=== PATIENT | female | born 1940 | race Caucasian/White ===

== ENCOUNTER → 2016-05-03 | Outpatient (CLI) | payer MEDICARE ==
[~2016-05-03] MED LIST: DAYPRO600 M1 PO; MEDROL DOSEPAK4 MG PO; SKELAXIN800 MG PO; VICODIN 500 MG-1 TAB PO; ZOFRAN4 MG PO
== END | disposition home or self-care (01) ==
LOC: MAMMO 12:38
DX: Z12.31 Encounter for screening mammogram for malignant neoplasm of breast (principal)

== ENCOUNTER 2018-08-02 22:34 | Emergency (ER) | payer MEDICARE ==
[~2018-08-02] VITALS: Ht 165.1 cm; Wt 83.9 kg
--- NOTE | ~2018-08-02 | EKG ---
[place], [place] ELECTROCARDIOGRAM REPORT NAME: DEYSI PACHECO UNIT #: [id number] ROOM: DOCTOR: EPIPHANY DRAFT REPORT BIRTHDATE: [birth year] [facility] Test Date: 2018-08-02 Test Time: 23:05:00 Pat Name: DEYSI PACHECO Department: Room: Gender: F [employer]: : 1940 Requested By: TRINO HERZOG Order Number: [id number] Reading MD: Burke Silva MD Measurements Intervals [place] Rate: 117 P: [place]: QRS: 31 QRSD: 76 T: 66 QT: 354 QTc: 494 Interpretive Statements Atrial fibrillation Low voltage, precordial leads Probable anteroseptal infarct, old Borderline ST elevation, lateral leads Electronically Signed On 08-05-2018 12:06:40 PDT by Burke Silva MD CM:EKGRPT:ELECTROCARDIOGRAM REPORT [id number] TRINO MICHEL DRAFT REPORT TRINO HERZOG DO
[2018-08-02 23:27] LABS: BASO # 0.1 10*3/uL (0.0-0.1); BASO % 0.3 % (0.0-1.0); EOS % 0.1 % (1.0-4.0); HEMATOCRIT 29.8 % (37.0-47.0); HEMOGLOBIN 9.9 g/dl (12.0-16.0); LYMPH # 1.2 10*3/uL (1.3-4.4); LYMPH % 7.1 % (27.0-41.0); MEAN CELL VOLUME 92.3 fl (81.0-99.0); MEAN CORPUSCULAR HGB 30.7 pg (27.0-31.0); MEAN CORPUSCULAR HGB CONC 33.2 g/dl (33.0-37.0); MEAN PLATELET VOLUME 10.6 fl (9.6-12.3); MONO # 0.8 10*3/uL (0.1-1.0); MONO % 4.6 % (3.0-9.0); NEUT # 15.1 10*3/uL (2.3-7.9); NEUT % 87.4 % (47.0-73.0); PLATELET COUNT AUTOMATED 332 10*3/uL (130-400); RED BLOOD COUNT 3.23 10*6/uL (4.10-5.10); RED CELL DISTRI WIDTH 12.3 % (0-14.5); WHITE BLOOD COUNT 17.3 10*3/uL (4.8-10.8)
[2018-08-02 23:44] LABS: ALBUMIN 2.9 gm/dl (3.1-4.5); ALKALINE PHOSPHATASE 63 U/L (45-117); BUN 45 mg/dl (7-24); CHLORIDE 106 mmol/L (98-107); CREATININE 0.88 mg/dL (0.55-1.02); POTASSIUM 3.6 mmol/L (3.5-5.1); SGOT/AST 20 IU/L (3-35); SGPT/ALT 12 U/L (12-78); SODIUM 139 mmol/L (136-145); TOTAL PROTEIN 5.6 gm/dL (6.4-8.2)
[2018-08-03 03:03] LABS: BILIRUBIN NEGATIVE (NEGATIVE); BLOOD 3+ (NEGATIVE); CLARITY CLEAR (CLEAR); COLOR YELLOW (YELLOW); GLUCOSE NEGATIVE (NEGATIVE); KETONE TRACE (NEGATIVE); LEUKO ESTERASE NEGATIVE (NEGATIVE); NITRITE NEGATIVE (NEGATIVE); SPECIFIC GRAVITY 1.015 (1.005-1.030); UROBILINOGEN 0.2 E.U./dl (0.2-1.0)
[2018-08-03 03:20] LABS: BACTERIA 1+
== END 2018-08-03 03:44 | disposition short-term general hospital (02) ==
LOC: ED 22:34
PROVIDERS: Emergency Medicine
DX: K92.2 Gastrointestinal hemorrhage, unspecified (principal); I48.91 Unspecified atrial fibrillation; I21.4 Non-ST elevation (NSTEMI) myocardial infarction; R11.10 Vomiting, unspecified; Z90.49 Acquired absence of other specified parts of digestive tract

== ENCOUNTER → 2018-09-24 | Outpatient (CLI) | payer MEDICARE ==
[2018-09-24 12:27] LABS: BASO # 0.1 10*3/uL (0.0-0.1); EOS # 0.4 10*3/uL (0.0-0.4); EOS % 5.9 % (1.0-4.0); HEMATOCRIT 35.8 % (37.0-47.0); LYMPH % 27.4 % (27.0-41.0); MEAN CELL VOLUME 93.2 fl (81.0-99.0); MEAN CORPUSCULAR HGB 28.6 pg (27.0-31.0); MEAN CORPUSCULAR HGB CONC 30.7 g/dl (33.0-37.0); MEAN PLATELET VOLUME 11.1 fl (9.6-12.3); MONO # 0.5 10*3/uL (0.1-1.0); MONO % 7.2 % (3.0-9.0); NEUT # 4.3 10*3/uL (2.3-7.9); NEUT % 58.2 % (47.0-73.0); PLATELET COUNT AUTOMATED 314 10*3/uL (130-400); RED BLOOD COUNT 3.84 10*6/uL (4.10-5.10); RED CELL DISTRI WIDTH 13.7 % (0-14.5); WHITE BLOOD COUNT 7.3 10*3/uL (4.8-10.8)
[2018-09-24 12:35] LABS: BUN 13 mg/dl (7-24); CHLORIDE 104 mmol/L (98-107); CREATININE 0.77 mg/dL (0.55-1.02); POTASSIUM 3.8 mmol/L (3.5-5.1); SODIUM 139 mmol/L (136-145)
== END | disposition home or self-care (01) ==
LOC: LAB 11:42
PROVIDERS: Internal Medicine
DX: E87.2 Acidosis (principal); K92.2 Gastrointestinal hemorrhage, unspecified; E11.9 Type 2 diabetes mellitus without complications; D62 Acute posthemorrhagic anemia

== ENCOUNTER → 2018-12-10 | Outpatient (CLI) | payer MEDICARE | END | disposition home or self-care (01) | LOC: CARD 00:32 | DX: I21.4 Non-ST elevation (NSTEMI) myocardial infarction (principal); I10 Essential (primary) hypertension ==

== ENCOUNTER 2021-02-19 19:53 | Emergency (ER) | payer MEDICARE ==
[2021-02-19 20:34] LABS: BASO # 0.1 10*3/uL (0.0-0.1); BASO % 0.4 % (0.0-1.0); EOS % 0.1 % (1.0-4.0); HEMATOCRIT 48.7 % (37.0-47.0); LYMPH # 1.4 10*3/uL (1.3-4.4); LYMPH % 11.5 % (27.0-41.0); MEAN CELL VOLUME 98.4 fl (81.0-99.0); MEAN CORPUSCULAR HGB 30.5 pg (27.0-31.0); MEAN PLATELET VOLUME 10.2 fl (9.6-12.3); MONO # 0.8 10*3/uL (0.1-1.0); NEUT # 9.5 10*3/uL (2.3-7.9); NEUT % 80.5 % (47.0-73.0); PLATELET COUNT AUTOMATED 292 10*3/uL (130-400); RED BLOOD COUNT 4.95 10*6/uL (4.10-5.10); RED CELL DISTRI WIDTH 13.3 % (0-14.5); WHITE BLOOD COUNT 11.8 10*3/uL (4.8-10.8)
[2021-02-19 20:50] LABS: ALBUMIN 2.8 gm/dl (3.1-4.5); ALKALINE PHOSPHATASE 103 U/L (45-117); BUN 14 mg/dl (7-24); CHLORIDE 108 mmol/L (98-107); CPK 437 U/L (26-192); CREATININE 0.89 mg/dL (0.55-1.02); POTASSIUM 3.9 mmol/L (3.5-5.1); SGOT/AST 35 IU/L (3-35); SGPT/ALT 21 U/L (12-78); SODIUM 137 mmol/L (136-145); TOTAL PROTEIN 6.9 gm/dL (6.4-8.2)
== END 2021-02-19 22:13 | disposition short-term general hospital (02) ==
LOC: ED 19:53
PROVIDERS: Internal Medicine
DX: S06.359A Traumatic hemorrhage of left cerebrum with loss of consciousness of unspecified duration, initial encounter (principal); W19.XXXA Unspecified fall, initial encounter; Y93.89 Activity, other specified; Y92.89 Other specified places as the place of occurrence of the external cause; Y99.8 Other external cause status

== ENCOUNTER 2021-04-09 10:24 | Emergency (ER) | payer MEDICARE ==
[~2021-04-09] VITALS: Ht 167.6 cm; Wt 72.3 kg
== END 2021-04-09 14:09 | disposition home or self-care (01) ==
LOC: ED 10:24
DX: S70.01XA Contusion of right hip, initial encounter (principal); Z90.49 Acquired absence of other specified parts of digestive tract; W06.XXXA Fall from bed, initial encounter; Y93.89 Activity, other specified; Y92.89 Other specified places as the place of occurrence of the external cause; Y99.8 Other external cause status

== ENCOUNTER 2021-04-21 12:18 | Emergency (ER) | payer MEDICARE ==
[~2021-04-21] VITALS: Ht 167.6 cm; Wt 63.5 kg
[2021-04-21 12:47] LABS: BASO # 0.1 10*3/uL (0.0-0.1); BASO % 0.5 % (0.0-1.0); EOS # 0.2 10*3/uL (0.0-0.4); EOS % 1.6 % (1.0-4.0); HEMATOCRIT 31.8 % (37.0-47.0); LYMPH # 2.4 10*3/uL (1.3-4.4); LYMPH % 17.7 % (27.0-41.0); MEAN CELL VOLUME 94.4 fl (81.0-99.0); MEAN CORPUSCULAR HGB 28.8 pg (27.0-31.0); MEAN CORPUSCULAR HGB CONC 30.5 g/dl (33.0-37.0); MONO # 1.4 10*3/uL (0.1-1.0); MONO % 10.4 % (3.0-9.0); NEUT # 9.3 10*3/uL (2.3-7.9); NEUT % 69.1 % (47.0-73.0); PLATELET COUNT AUTOMATED 484 10*3/uL (130-400); RED BLOOD COUNT 3.37 10*6/uL (4.10-5.10); RED CELL DISTRI WIDTH 14.8 % (0-14.5); WHITE BLOOD COUNT 13.4 10*3/uL (4.8-10.8)
[2021-04-21 13:05] LABS: ACT PARTIAL THROMBO TIME 27.6 SECONDS (20.0-32.1); INTERNATIONAL NORM RATIO 1.1 (2.0-3.5)
[2021-04-21 13:07] LABS: CREATININE 1.22 mg/dL (0.55-1.02); POTASSIUM 3.9 mmol/L (3.5-5.1)
== END 2021-04-21 17:21 | disposition home or self-care (01) ==
LOC: ED 12:18
PROVIDERS: Emergency Medicine
DX: S00.03XA Contusion of scalp, initial encounter (principal); Z90.49 Acquired absence of other specified parts of digestive tract; Z98.890 Other specified postprocedural states; W18.39XA Other fall on same level, initial encounter; Y93.89 Activity, other specified; Y92.128 Other place in nursing home as the place of occurrence of the external cause; Y99.8 Other external cause status

== ENCOUNTER 2021-05-28 13:34 | Observation (INO) | payer MEDICARE ==
[~2021-05-28] VITALS: Ht 165.1 cm; Wt 69.4 kg
[2021-05-28 13:40] VITALS: BP 150/88
[2021-05-28 14:34] LABS: BASO # 0.1 10*3/uL (0.0-0.1); BASO % 0.8 % (0.0-1.0); EOS # 0.3 10*3/uL (0.0-0.4); EOS % 3.3 % (1.0-4.0); HEMATOCRIT 38.1 % (37.0-47.0); LYMPH # 2.6 10*3/uL (1.3-4.4); MEAN CELL VOLUME 92.7 fl (81.0-99.0); MEAN CORPUSCULAR HGB CONC 30.2 g/dl (33.0-37.0); MONO # 0.7 10*3/uL (0.1-1.0); MONO % 7.4 % (3.0-9.0); NEUT # 5.7 10*3/uL (2.3-7.9); NEUT % 60.2 % (47.0-73.0); PLATELET COUNT AUTOMATED 291 10*3/uL (130-400); RED BLOOD COUNT 4.11 10*6/uL (4.10-5.10); RED CELL DISTRI WIDTH 14.9 % (0-14.5); WHITE BLOOD COUNT 9.4 10*3/uL (4.8-10.8)
[2021-05-28 14:45] LABS: ACT PARTIAL THROMBO TIME 25.1 SECONDS (20.0-32.1); INTERNATIONAL NORM RATIO 1.1 (2.0-3.5)
[2021-05-28 14:51] LABS: ALKALINE PHOSPHATASE 92 U/L (45-117); BUN 20 mg/dl (7-24); CHLORIDE 112 mmol/L (98-107); CREATININE 1.05 mg/dL (0.55-1.02); LIPASE 67 U/L (73-393); SGOT/AST 19 IU/L (3-35); SGPT/ALT 17 U/L (12-78); SODIUM 142 mmol/L (136-145); TOTAL PROTEIN 6.4 gm/dL (6.4-8.2)
[2021-05-28 15:55] LABS: BILIRUBIN Negative (Negative); BLOOD Negative (Negative); CLARITY Clear (Clear); COLOR Yellow (Yellow); GLUCOSE Negative (Negative); KETONE Negative (Negative); LEUKO ESTERASE Negative (Negative); NITRITE Negative (Negative); PH 6.5 (4.5-8.0)
[2021-05-28 16:07] LABS: RBC 0-2 rbc/hpf (0-2)
[2021-05-28 18:00] VITALS: BP 157/90
[2021-05-28] MEDS ORDERED: CARVEDILOL6.25 MG PO (20:06)
[2021-05-28] MEDS ORDERED: FERROUS SULFAT325 MG PO (20:07)
[2021-05-28] MEDS ORDERED: NATURE'S BLEND F1 MG PO (20:07)
[2021-05-28] MEDS ORDERED: GABAPENTIN100 M2 PO (20:07)
[2021-05-28] MEDS ORDERED: EXELON1 EAC1 T (20:07)
[2021-05-28] MEDS ORDERED: MIRTAZAPINE15 M2 PO (20:10)
[2021-05-28] MEDS ORDERED: ELIQUIS5 M1 PO (20:11)
[2021-05-28] MEDS ORDERED: PROTONIX40 MG PO (20:11)
[2021-05-28] MEDS ORDERED: OXYBUTYNIN CHLOR5 M1 PO (20:11)
[2021-05-28] MEDS ORDERED: ATORVASTATIN CA40 M1 PO (20:19)
[2021-05-28 21:14] VITALS: BP 167/82
[2021-05-28 21:17] VITALS: BP 157/90
[2021-05-28 22:00] VITALS: BP 157/90
[2021-05-28] MEDS ORDERED: GOOD SENSE ASP325 MG PO (22:43)
[2021-05-29] VITALS: BP 155/86
[2021-05-29 12:00] VITALS: BP 128/81
== END 2021-05-29 15:46 ==
LOC: ED 13:34 → EDHOLD 18:37 → 5E 18:37
PROVIDERS: Emergency Medicine; ADMIT Internal Medicine; ATTEND Internal Medicine
DX: G45.9 Transient cerebral ischemic attack, unspecified (principal); R41.82 Altered mental status, unspecified; Z20.822 Contact with and (suspected) exposure to COVID-19; I10 Essential (primary) hypertension; E78.5 Hyperlipidemia, unspecified; F03.90 Unspecified dementia, unspecified severity, without behavioral disturbance, psychotic disturbance, mood disturbance, and anxiety; F33.9 Major depressive disorder, recurrent, unspecified; D50.9 Iron deficiency anemia, unspecified; R32 Unspecified urinary incontinence; K21.00 Gastro-esophageal reflux disease with esophagitis, without bleeding; Z79.899 Other long term (current) drug therapy; Z85.038 Personal history of other malignant neoplasm of large intestine

== ENCOUNTER 2021-07-14 08:48 | Emergency (ER) | payer MEDICARE ==
[~2021-07-14] VITALS: Ht 167.6 cm; Wt 68.0 kg
[~2021-07-14 08:48] MED LIST changes: +ATORVASTATIN CA40 M1 PO; +CARVEDILOL6.25 MG PO; +ELIQUIS5 M1 PO; +EXELON1 EAC1 T; +FERROUS SULFAT325 MG PO; +GABAPENTIN100 M2 PO; +GOOD SENSE ASP325 MG PO; +MIRTAZAPINE15 M2 PO; +NATURE'S BLEND F1 MG PO; +OXYBUTYNIN CHLOR5 M1 PO; +PROTONIX40 MG PO
[2021-07-14] MEDS ORDERED: ASPIRIN CHEWABL81 MG PO (09:36)
[2021-07-14] MEDS ORDERED: ATORVASTATIN CA40 M1 PO (09:37)
[2021-07-14] MEDS ORDERED: GABAPENTIN100 M2 PO (09:39)
[2021-07-14] MEDS ORDERED: NUPLAZID34 MG PO (09:40)
[2021-07-14] MEDS ORDERED: MIRALAX119 GM PO (09:42)
[2021-07-14] MEDS ORDERED: ACETAMINOPHEN325 M2 PO (09:43)
[2021-07-14] MEDS ORDERED: MILK OF MA400 MG/5 M PO (09:44)
[2021-07-14] MEDS ORDERED: ONDANSETRON HYDR4 MG PO (09:45)
[2021-07-14] MEDS ORDERED: CARBIDOPA-LEVO1 EAC6 PO (09:48)
== END 2021-07-14 11:47 ==
LOC: ED 08:48
DX: R51.9 Headache, unspecified (principal); Z79.899 Other long term (current) drug therapy; Z79.82 Long term (current) use of aspirin; Z88.8 Allergy status to other drugs, medicaments and biological substances; Z90.49 Acquired absence of other specified parts of digestive tract; Z98.890 Other specified postprocedural states

== ENCOUNTER 2022-05-15 08:12 | Emergency (ER) | payer MEDICARE ==
[~2022-05-15] VITALS: Ht 167.6 cm; Wt 90.3 kg
[~2022-05-15 08:12] MED LIST changes: +ACETAMINOPHEN325 M2 PO; +ASPIRIN CHEWABL81 MG PO; +CARBIDOPA-LEVO1 EAC6 PO; +MILK OF MA400 MG/5 M PO; +MIRALAX119 GM PO; +NUPLAZID34 MG PO; +ONDANSETRON HYDR4 MG PO
[2022-05-15 09:01] LABS: BASO # 0.1 10*3/uL (0.0-0.1); BASO % 0.5 % (0.0-1.0); EOS # 0.2 10*3/uL (0.0-0.4); EOS % 1.1 % (1.0-4.0); HEMATOCRIT 40.2 % (37.0-47.0); LYMPH # 2.6 10*3/uL (1.3-4.4); LYMPH % 17.2 % (27.0-41.0); MEAN CELL VOLUME 96.4 fl (81.0-99.0); MEAN CORPUSCULAR HGB 30.9 pg (27.0-31.0); MEAN CORPUSCULAR HGB CONC 32.1 g/dl (33.0-37.0); MEAN PLATELET VOLUME 9.9 fl (9.6-12.3); MONO # 1.1 10*3/uL (0.1-1.0); MONO % 7.3 % (3.0-9.0); NEUT # 10.9 10*3/uL (2.3-7.9); NEUT % 73.4 % (47.0-73.0); PLATELET COUNT AUTOMATED 302 10*3/uL (130-400); RED BLOOD COUNT 4.17 10*6/uL (4.10-5.10); RED CELL DISTRI WIDTH 13.4 % (0-14.5); WHITE BLOOD COUNT 14.9 10*3/uL (4.8-10.8)
[2022-05-15 09:15] LABS: ACT PARTIAL THROMBO TIME 32.8 SECONDS (20.0-32.1); INTERNATIONAL NORM RATIO 1.2 (2.0-3.5)
[2022-05-15 09:31] LABS: ALKALINE PHOSPHATASE 111 U/L (46-116); BUN 23 mg/dl (9-23); CHLORIDE 104 mmol/L (98-107); LIPASE 28 U/L (12-53); POTASSIUM 3.7 mmol/L (3.4-5.1); TOTAL PROTEIN 7.1 gm/dL (6.0-8.0)
[2022-05-15 09:49] LABS: SGPT/ALT < 7 U/L (10-49)
[2022-05-15 11:17] LABS: BILIRUBIN Negative (Negative); BLOOD Negative (Negative); CLARITY Clear (Clear); COLOR Yellow (Yellow); GLUCOSE Negative (Negative); KETONE Negative (Negative); LEUKO ESTERASE 3+ (Negative); NITRITE Positive (Negative); PH 7.5 (4.5-8.0); SPECIFIC GRAVITY 1.015 (1.001-1.030)
[2022-05-15 11:42] LABS: BACTERIA 3+; EPITHELIAL CELLS 16-20; RBC 0-2 rbc/hpf (0-2); WBC TNTC wbc/hpf (0-5)
[2022-05-15] MEDS ORDERED: CIPRO250 MG PO (14:16)
== END 2022-05-15 14:35 ==
LOC: ED 08:12
PROVIDERS: Emergency Medicine
DX: M25.551 Pain in right hip (principal); N39.0 Urinary tract infection, site not specified; Z88.8 Allergy status to other drugs, medicaments and biological substances; Z79.899 Other long term (current) drug therapy; Z79.82 Long term (current) use of aspirin; Z90.49 Acquired absence of other specified parts of digestive tract; W18.39XA Other fall on same level, initial encounter; Y93.89 Activity, other specified; Y92.89 Other specified places as the place of occurrence of the external cause; Y99.8 Other external cause status

== ENCOUNTER 2022-05-21 12:48 | Observation (INO) | payer MEDICARE ==
[~2022-05-21] VITALS: Ht 167.6 cm; Wt 84.5 kg
[~2022-05-21 12:48] MED LIST changes: +CIPRO250 MG PO
[2022-05-21 12:55] VITALS: BP 125/61
[2022-05-21 14:06] LABS: BASO # 0.1 10*3/uL (0.0-0.1); BASO % 0.8 % (0.0-1.0); EOS # 0.4 10*3/uL (0.0-0.4); EOS % 2.5 % (1.0-4.0); HEMATOCRIT 32.9 % (37.0-47.0); LYMPH # 3.3 10*3/uL (1.3-4.4); LYMPH % 23.1 % (27.0-41.0); MEAN CELL VOLUME 98.8 fl (81.0-99.0); MEAN CORPUSCULAR HGB 30.9 pg (27.0-31.0); MEAN CORPUSCULAR HGB CONC 31.3 g/dl (33.0-37.0); MEAN PLATELET VOLUME 10.2 fl (9.6-12.3); MONO # 1.2 10*3/uL (0.1-1.0); MONO % 8.1 % (3.0-9.0); NEUT # 9.4 10*3/uL (2.3-7.9); PLATELET COUNT AUTOMATED 372 10*3/uL (130-400); RED BLOOD COUNT 3.33 10*6/uL (4.10-5.10); RED CELL DISTRI WIDTH 13.7 % (0-14.5); WHITE BLOOD COUNT 14.5 10*3/uL (4.8-10.8)
[2022-05-21 14:20] LABS: INTERNATIONAL NORM RATIO 1.1 (2.0-3.5)
[2022-05-21 14:36] LABS: BILIRUBIN Negative (Negative); BLOOD Negative (Negative); CLARITY Clear (Clear); COLOR Yellow (Yellow); GLUCOSE Negative (Negative); KETONE Negative (Negative); LEUKO ESTERASE Negative (Negative); NITRITE Negative (Negative); PH 5.5 (4.5-8.0); SPECIFIC GRAVITY 1.015 (1.001-1.030)
[2022-05-21 15:26] LABS: ALKALINE PHOSPHATASE 99 U/L (46-116); BUN 23 mg/dl (9-23); CHLORIDE 100 mmol/L (98-107); LIPASE 44 U/L (12-53); POTASSIUM 3.3 mmol/L (3.4-5.1)
[2022-05-21 15:28] LABS: SGPT/ALT < 7 U/L (10-49)
[2022-05-21 16:44] LABS: EPITHELIAL CELLS 21-30; RBC 0-2 rbc/hpf (0-2); WBC 0-2 wbc/hpf (0-5)
[2022-05-21 17:19] VITALS: BP 118/65
[2022-05-21 19:50] VITALS: BP 121/79
[2022-05-21 21:30] VITALS: BP 145/69
[2022-05-21] MEDS ORDERED: TRAMADOL HCL50 MG PO (21:57)
[2022-05-21] MEDS ORDERED: BUMETANIDE1 MG PO (21:58)
[2022-05-21] MEDS ORDERED: AMLODIPINE BESY10 MG PO (22:00)
[2022-05-21] MEDS ORDERED: VITAMIN D325 MCG PO (22:02)
[2022-05-22] VITALS: BP 132/70
[2022-05-22 08:00] VITALS: BP 138/78
[2022-05-22] MEDS ORDERED: CIPRO500 MG PO (09:35)
[2022-05-22] MEDS ORDERED: TRAMADOL HCL50 MG PO (09:42)
== END 2022-05-22 11:58 ==
LOC: ED 12:48 → 4E 18:32 → EDHOLD 18:32 → 4E 18:32
PROVIDERS: Emergency Medicine; ADMIT Internal Medicine; ATTEND Internal Medicine
DX: I10 Essential (primary) hypertension (principal); Z20.822 Contact with and (suspected) exposure to COVID-19; E78.2 Mixed hyperlipidemia; M19.90 Unspecified osteoarthritis, unspecified site; F32.9 Major depressive disorder, single episode, unspecified; G30.1 Alzheimer's disease with late onset; F02.80 Dementia in other diseases classified elsewhere, unspecified severity, without behavioral disturbance, psychotic disturbance, mood disturbance, and anxiety; K21.00 Gastro-esophageal reflux disease with esophagitis, without bleeding; R79.1 Abnormal coagulation profile; R62.7 Adult failure to thrive; Z79.899 Other long term (current) drug therapy

== ENCOUNTER 2024-10-23 12:53 | Inpatient (IN) | payer OTHER, MEDICAID ==
[~2024-10-23 12:53] MED LIST changes: +AMLODIPINE BESY10 MG PO; +AMOX-CLAV 875-1 EACH PO; +BUMETANIDE1 MG PO; +CIPRO500 MG PO; +COREG25 MG PO; +EXELON1 EAC2 TD; +GLIMEPIRIDE2 MG PO; +GUAIFENESI100 MG/56 PO; +Ipratropium Brom3 ML INH; +LIPITOR80 MG PO; +MUCINEX ER600 MG PO; +NEURONTIN300 MG PO; +NORVASC5 MG PO; +POTASSIUM CHLO20 ME4 PO; +TRAMADOL HCL50 MG PO; +VENTOLIN 02.5 MG/3 M INH; +VIBRAMYCIN100 MG PO; +VITAMIN D325 MCG PO
[2024-10-23] MEDS ORDERED: ATROPINE SULFATE 1% 2 ML BOTTLE SL PRN (13:30)
[2024-10-23] MEDS ORDERED: diazePAM 10 MG/2 ML SYR IV PRN (13:30)
== END 2024-10-23 21:36 | DRG 189 ==
LOC: 4E 12:53
PROVIDERS: ADMIT Internal Medicine; ATTEND Internal Medicine
DX: J96.01 Acute respiratory failure with hypoxia (principal); J18.9 Pneumonia, unspecified organism; I48.21 Permanent atrial fibrillation; N18.32 Chronic kidney disease, stage 3b; Z66 Do not resuscitate